=== PATIENT | female | born 1985 | race Caucasian/White ===

== ENCOUNTER 2023-09-16 09:58 | Emergency (ER) | payer OTHER, SELFPAY ==
[2023-09-16 10:10] VITALS: BP 125/98; PULSE 96; RESP 20; TEMP 36.3; O2SAT 96; BMI 50.0
--- NOTE | 2023-09-16 11:10 | ED.EYEPROB ---
HPI - Eye Problem General Chief complaint: Eye Problems Stated complaint: Infection L Eye Spreading to R Time Seen by Provider: 09/16/23 11:01 Source: patient Mode of arrival: ambulatory Limitations: no limitations History of Present Illness HPI Narrative: 29-year-old female presents with redness and tearing of left eye this started on Thursday and has been progressively worsening ever since now on her right eye also. Reports some discomfort in that eye however not particularly pain. Reports eye sales lab particularly in the morning sometimes she wakes up and her eyes glued shut. Denies headache, vision changes, fevers, chills, nausea, vomiting, upper respiratory symptoms, chest pain and shortness of breath Related Data Previous Rx's Medication Instructions Recorded erythromycin 5 mg/gram (0.5 %) eye 1 appl ophthalmic (eye) TID 5 days 09/16/23 ointment #3.5 grams Allergies Allergy/AdvReac Type Severity Reaction Status Date / Time codeine Allergy Hives Verified 09/16/23 10:13 Review of Systems Review of Systems: Constitutional : No Weight loss, No Fever, No Chills, No Fatigue, No Malaise ENT/Mouth : No sore throat, No Rhinorrhea Eyes: No Eye Pain, No Swelling, + Redness Cardiovascular : No Chest Pain, No SOB, No Dyspnea on Exertion, No Orthopnea, No Edema, No Palpitations Respiratory : No Cough, No Sputum, No Wheezing Gastrointestinal : No Nausea, No Vomiting, No Diarrhea, No Constipation, No abdominal Pain, No Hematochezia, No Melena Genitourinary : No Dysuria, No Urinary Frequency, No Hematuria, Musculoskeletal : No joint pain, No Myalgias, No Joint Swelling Skin : No Skin Lesions, No rash Neuro : No Weakness, No Numbness, No Dizziness, No Headache Psych : No Anxiety/Panic, No Depression All other systems reviewed and are negative Yes all other systems are reviewed and are negative [facility] Past Medical History Attestation statement: The following information was validated with the patient. Source: old records reviewed and nursing notes reviewed Onset Date is defined in the Problem List Problems that require an onset date and time if occurred within 24 hrs of arrival to the ED Aortic Dissection and Rupture; Neurologic impairment; Cardiopulmonary Arrest; Endotracheal Intubation; Insertion or Replacement of Mechanical Circulatory Assist Device Physical Exam Vital Signs: Vital Signs: Last Vital Signs Temp 97.3 F 01/03/24 10:10 Pulse 96 09/16/23 10:10 Resp 20 09/16/23 10:10 BP 125/98 H 09/16/23 10:10 Pulse Ox 96 09/16/23 10:10 O2 Del Method Room Air 09/16/23 10:10 BMI result Body Mass Index 50.0 vss Appearance: Alert.? Oriented X3.? No acute distress.? Head: Normocephalic, atraumatic, no step-offs or deformities Eyes: Pupils equal, round and reactive to light.? Extraocular movements intact and pain-free bilaterally. B/l eyes w/ injection to conjunctiva. ENT: Pharynx normal.? Neck: Normal inspection.? Neck supple.? CVS: Normal heart rate and rhythm.? Pulses normal.? Respiratory: No respiratory distress.? Breath sounds normal.? Abdomen: Soft and nontender.? Skin: Skin warm and dry.? Normal skin color.? Normal skin turgor.? Extremities: No lower extremity edema.? No calf ttp. 5/5 strength to bilateral upper and lower extremities Neuro: Oriented X 3.? No motor deficit.? No sensory deficit. CN 2-12 intact Course Reevaluation(s) Reevaluation #1: Educated patient on diagnosis and treatment plan, answered all question, patient verbalizes understanding. At this time patient will be discharged home, advised to return with new or worsening symptoms. Educated on worrisome signs and symptoms and when to return. At this time I feel comfortable discharge home. Time: 11:21 Medical Decision Making Medical Decision Making MDM Narrative: 37 year old female presents with redness, watering of left eye X 5 days Pupils equal, round and reactive to light.? Extraocular movements intact and pain-free bilaterally. B/l eyes w/ injection to conjunctiva. This is likely bacterial conjunctivitis. Unlikely orbital/periorbital cellulitis, wet macular degeneration, acute closed angle glaucoma, foreign body in eye, arterial or venous occlusion. Plan will discharge patient home with erythromycin for suspected conjunctivitis Differential Diagnosis Differential Diagnoses: The differential diagnosis associated with the presentation includes This is likely bacterial conjunctivitis. Unlikely orbital/periorbital cellulitis, wet macular degeneration, acute closed angle glaucoma, foreign body in eye, arterial or venous occlusion. Admission/Observation Consideration of admission/observation: Escalation of care including admission/observation considered unlikely Tests considered The following testing was considered but not selected: Discharge extraocular movements intact pain-free, no indication for imaging at this time Critical Care Time Critical Care Time Critical Care Time: No Discharge Plan Discharge Clinical Impression: Bacterial conjunctivitis Patient Disposition: Home, Self-Care Instructions: Conjunctivitis (ED) Additional Instructions: Take your medications as prescribed. If you were prescribed antibiotics today, it is important that you take your medication to their entirety, do not skip any doses, do not finish them early. Follow-up with your primary care provider this week. Return to the emergency department with new or worsening symptoms. Such as fevers, chills, chest pain, shortness of breath, nausea, vomiting, dizziness, headache, vision changes, lethargy In case of emergency call 911 Prescriptions: New erythromycin 5 mg/gram (0.5 %) ointment 1 appl ophthalmic (eye) TID 5 Days Qty: 3.5 0RF Referrals: Physician,None [Primary Care Provider] - 2 days Stand Alone Forms: Work/School Release
[2023-09-16 11:32] VITALS: BP 121/89; PULSE 92; RESP 20; TEMP 36.7; O2SAT 96
--- NOTE | 2023-09-16 11:33 | PC.NURSE ---
patient a&ox3, vss, family at bedside, pt notified CT scan was negative, pt ambulated with steady gait understands discharge instructions.
== END 2023-09-16 11:41 | disposition home or self-care (01) ==
PROVIDERS: Emergency Provider Emergency Medicine
DX: H10.89 Other conjunctivitis (principal); B96.89 Other specified bacterial agents as the cause of diseases classified elsewhere; H44.002 Unspecified purulent endophthalmitis, left eye
CPT/HCPCS: 99283

== ENCOUNTER 2023-12-18 05:56 | Emergency (ER) | payer OTHER, SELFPAY ==
--- NOTE | ~2023-12-18 | CT_ITS ---
EXAMINATION: CT HEAD WITHOUT CONTRAST CLINICAL INFORMATION: Status post fall with head strike. COMPARISON: None available. TECHNIQUE: Contiguous axial imaging was performed from the skull base to vertex without intravenous administration of contrast. This CT examination was performed using dose optimization techniques as appropriate, variously including the following: *Automated exposure control *Adjustment of mA and/or kV according to patient size (this includes techniques or standardized protocols for targeted exams where dose is matched to indication/reason for exam; i.e. extremities or head) *Use of iterative reconstruction technique DLP: 1376 mGy-cm FINDINGS: There is no evidence of acute intracranial hemorrhage or territorial infarction. No mass effect or midline shift is seen. Maya to white matter differentiation is preserved. No extra-axial fluid collections are identified. Prominent CSF spaces are noted in the sub vertex region. No hydrocephalus. The calvarium is intact. The mastoid air cells and visualized portions of the paranasal sinuses are well aerated. CT/CT head/brain wo IV con IMPRESSION: No acute intracranial pathology.
--- NOTE | ~2023-12-18 | XR_ITS ---
EXAMINATION: XR RIBS, LEFT CLINICAL INFORMATION: Left-sided rib pain after fall yesterday COMPARISON: None available. TECHNIQUE: PA chest and 3 views of the left ribs were obtained. FINDINGS: Lungs are clear. No consolidation, pneumothorax, or pleural effusion. The cardiomediastinal silhouette and pulmonary vasculature are normal. Osseous structures are unremarkable. Ribs are intact. No fractures are identified. XR/XR ribs LT min 3V w CXR1V IMPRESSION: Unremarkable examination.
--- NOTE | ~2023-12-18 | CT_ITS ---
EXAMINATION: CT CERVICAL SPINE WITHOUT CONTRAST CLINICAL INFORMATION: Neck pain. Trauma. COMPARISON: None available. TECHNIQUE: Axial images through the cervical spine without IV contrast. Sagittal and coronal reconstructions on the technologist workstation were performed. This CT examination was performed using dose optimization techniques as appropriate, variously including the following: *Automated exposure control *Adjustment of mA and/or kV according to patient size (this includes techniques or standardized protocols for targeted exams where dose is matched to indication/reason for exam; i.e. extremities or head) *Use of iterative reconstruction technique DLP: 689 mGy-cm FINDINGS: Bone alignment is normal. No fracture or dislocation. Mild degenerative spondylosis and disc space narrowing at C6-C7. Prevertebral soft tissues are normal. Lung apices are clear. CT/CT cervical spine wo IV con IMPRESSION: Mild degenerative changes. No fracture or dislocation. Fleischner guidelines were followed.
[2023-12-18 05:58] VITALS: BP 167/93; PULSE 90; RESP 17; TEMP 36.6; O2SAT 98; BMI 49.2
--- NOTE | 2023-12-18 06:51 | ED_ITS ---
HPI - General Adult General Chief complaint: Fall Stated complaint: Back Side Pain Fall 12/17/23 Time Seen by Provider: 12/18/23 06:42 Source: patient Mode of arrival: ambulatory Limitations: no limitations Related Data Previous Rx's ?Medication ?Instructions ?Recorded erythromycin 5 mg/gram (0.5 %) eye 1 appl ophthalmic (eye) TID 5 days 09/16/23 ointment #3.5 grams ketorolac 10 mg tablet 10 mg PO TID PRN pain 5 days #15 12/18/23 tabs lidocaine 5 % topical patch 1 patch topical DAILY PRN pain #15 12/18/23 ea Allergies Allergy/AdvReac Type Severity Reaction Status Date / Time codeine Allergy Hives Verified 12/18/23 06:00 Review of Systems Review of Systems: Yes all other systems are reviewed and are negative [facility] Past Medical History Attestation statement: The following information was validated with the patient. Source: old records reviewed and nursing notes reviewed Social History Social History Smoked in Last 30 Days: No Use of substances other than those prescribed or required for medical reasons: No Advance Directives: No Advance Directives Information Provided: No Physical Exam ED Vital Signs: Vital Signs - 24 hr 12/18/23 05:58 12/18/23 07:16 12/18/23 08:35 Temperature 97.9 F Pulse Rate 90 86 82 Respiratory Rate 17 20 16 Blood Pressure 167/93 H 148/102 H 138/102 H Pulse Oximetry 98 98 97 Oxygen Delivery Method Room Air Room Air Room Air 12/18/23 09:19 Temperature 97.9 F Pulse Rate 82 Respiratory Rate 16 Blood Pressure 138/102 H Pulse Oximetry 97 Oxygen Delivery Method Room Air BMI result Body Mass Index 49.2 vss Appearance: Alert.? Oriented X3.? No acute distress.? Head: Normocephalic, atraumatic, no step-offs or deformities Eyes: Pupils equal, round and reactive to light.? Neck: Normal inspection.? Neck supple.? CVS: Normal heart rate and rhythm.? Pulses normal.? Respiratory: No respiratory distress.? Breath sounds normal.? Abdomen: Soft and nontender.? Skin: Skin warm and dry.? Normal skin color.? Normal skin turgor.? Extremities: No lower extremity edema.? No calf ttp. 5/5 strength to bilateral upper and lower extremities 2+ radial pulses equal and b/l. Normal sensation distally. No wrist drop. cap refil < 2 seconds. Normal hand grib b/l. Back: No midline tenderness, no C-spine tenderness, full range of motion, no CVA tenderness bilaterally + left sided ttp on exam L1-L4 region Neuro: Oriented X 3.? No motor deficit.? No sensory deficit. CN 2-12 intact . Patient ambulating with steady gait normal coordination. Course Reevaluation(s) Reevaluation #1: CT head no acute intracranial pathology. Degenerative changes in cervical spine however no acute fracture dislocations. X-ray of ribs unremarkable. Patient ambulatory with steady gait normal coordination. Comfortable appearing. Educated patient on diagnosis and treatment plan, answered all question, patient verbalizes understanding. At this time patient will be discharged home, advised to return with new or worsening symptoms. Educated on worrisome signs and symptoms and when to return. At this time I feel comfortable discharge home. Time: 09:45 Medications Administered Discontinued Medications Generic Name Dose Route Start Last Admin Trade Name Adriane PRN Reason Stop Dose Admin Ketorolac Tromethamine 30 mg 12/18/23 07:04 12/18/23 07:13 Ketorolac Tromethamine 30 Mg/Ml Vial IM 12/18/23 07:05 30 mg ONCE ONE Administration Lidocaine 1 patch 12/18/23 07:04 12/18/23 07:12 Lidocaine 4 % Patch Adh..Patch TRANSDERMA 12/18/23 07:05 1 patch ONCE ONE Administration Protocol Medical Decision Making Medical Decision Making [facility] Narrative: [age] year old female presents w/ left sided lower back pain, left arm soreness s/p fall after slipping on ice. Not on thinners PE- 5/5 strength to bilateral upper and lower extremities 2+ radial pulses equal and b/l. Normal sensation distally. No wrist drop. cap refil < 2 seconds. Normal hand grib b/l. left sided ttp on exam L1-L4 region Hx and pe concerning of contusion. Unlikely fx, dislocation, flail chest, pneumothorax, traumatic injury to chest, abdomen or pelvis. Head strike likely concussion unlikey ich, stroke, posterior stroke. No signs of fx, dislocation or traumatic subluxations of cervical spine. Plan- imaging, head ct, cervival spine CT Differential Diagnosis Differential Diagnoses: The differential diagnosis associated with the presentation includes Hx and pe concerning of contusion. Unlikely fx, dislocation, flail chest, pneumothorax, traumatic injury to chest, abdomen or pelvis. Head strike likely concussion unlikey ich, stroke, posterior stroke. No signs of fx, dislocation or traumatic subluxations of cervical spine. Critical Care Time Critical Care Time Critical Care Time: Yes Total Critical Care Time: 35 Attestation: I attest to this time spent taking care of the patient, obtaining history, physical, reviewing labs, imaging, speaking to my attending, speaking to specialist. Discharge Plan Discharge Clinical Impression: Fall from slipping, Concussion, Acute left-sided back pain Patient Disposition: Home, Self-Care Instructions: Concussion (ED), Flank Pain (ED) Additional Instructions: Take your medications as prescribed. If you were prescribed antibiotics today, it is important that you take your medication to their entirety, do not skip any doses, do not finish them early. Follow-up with your primary care provider this week. Return to the emergency department with new or worsening symptoms. Such as fevers, chills, chest pain, shortness of breath, nausea, vomiting, dizziness, headache, vision changes, lethargy In case of emergency call 911 Toradol has been sent to your pharmacy, you tolerated this well in the department. Please take this as prescribed do not take this with ibuprofen, or other NSAIDs, do not mix this with alcohol. Side effects of this medication including increased risk for bleeding and possible kidney injury. XR/XR ribs LT min 3V w CXR1V IMPRESSION: Unremarkable examination. CT/CT head/brain wo IV con IMPRESSION: No acute intracranial pathology. Prescriptions: New ketorolac 10 mg tablet 10 mg PO TID PRN (Reason: pain) 5 Days Qty: 15 0RF lidocaine 5 % adhesive patch,medicated 1 patch topical DAILY PRN (Reason: pain) Qty: 15 0RF Rx Instructions: leave on most painful area for up to 12 hrs No Action erythromycin 5 mg/gram (0.5 %) ointment 1 appl ophthalmic (eye) TID 5 Days Qty: 3.5 0RF Referrals: Physician,None [Primary Care Provider] - 2 days Stand Alone Forms: Work/School Release Interventions: ED Discharge Assessment Last Done: 12/18/23 09:19 Discharge Date/Time: 12/18/23 09:20 Print Language: Bruneian
[2023-12-18] MEDS: Lidocaine 4 % Patch ADH..PATCH 1 PATCH TRANSDERMA (07:12)
[2023-12-18] MEDS: Ketorolac Tromethamine 30 MG/ML VIAL IM (07:13)
[2023-12-18 07:16] VITALS: BP 148/102; PULSE 86; RESP 20; O2SAT 98
[2023-12-18 08:35] VITALS: BP 138/102; PULSE 82; RESP 16; O2SAT 97
[2023-12-18 09:19] VITALS: BP 138/102; PULSE 82; RESP 16; TEMP 36.6; O2SAT 97
== END 2023-12-18 09:20 | disposition home or self-care (01) ==
PROVIDERS: Emergency Provider Emergency Medicine
DX: S06.0XAA Concussion with loss of consciousness status unknown, initial encounter (principal); M54.9 Dorsalgia, unspecified; W00.0XXA Fall on same level due to ice and snow, initial encounter; Y93.9 Activity, unspecified; Y92.9 Unspecified place or not applicable; Y99.9 Unspecified external cause status
CPT/HCPCS: 70450; 71101; 72125; 96372; 99284; J1885